=== PATIENT | female | born 1965 | race Native Hawaiian/Other Pacific Islander ===

== ENCOUNTER 2018-03-01 11:30 | Outpatient (CLI) | payer SELFPAY | END 2018-03-01 11:31 | disposition home or self-care (01) | LOC: C.LAB 11:30 | DX: R73.01 Impaired fasting glucose (principal); I10 Essential (primary) hypertension; E78.5 Hyperlipidemia, unspecified; Z13.9 Encounter for screening, unspecified ==

== ENCOUNTER 2018-04-07 12:00 | Outpatient (CLI) | payer OTHER | END 2018-04-07 12:01 | disposition home or self-care (01) | LOC: C.MAMMO 12:00 | DX: Z12.31 Encounter for screening mammogram for malignant neoplasm of breast (principal); Z80.3 Family history of malignant neoplasm of breast ==